=== PATIENT | male | born 1955 | race Caucasian/White ===

== ENCOUNTER 2018-06-08 13:49 | Observation (INO) ==
[2018-06-08 14:59] LABS: Basophils # (auto) 0.03 K/uL (0-0.2); Basophils % (auto) 0.3 %; Eosinophils # (auto) 0.51 K/uL (0-0.5); Eosinophils % (auto) 4.7 %; Hematocrit (blood only) 39.1 % (42-52); Hemoglobin 13.4 g/dL (14.0-18.0); Immature Granulocytes # (auto) 0.02 K/uL (0.00-0.02); Immature Granulocytes % (auto) 0.2 %; Lymphocytes # (auto) 1.72 K/uL (1.2-3.4); Lymphocytes % (auto) 15.8 %; Mean Corpuscular Hgb Conc 34.3 g/dL (32-36); Mean Corpuscular Volume 88.9 fL (80-100); Mean Platelet Volume 9.5 fL (7.4-10.4); Monocytes # (auto) 1.17 K/uL (0.11-0.59); Monocytes % (auto) 10.7 %; Neutrophils # (auto) 7.46 K/uL (1.4-6.5); Neutrophils % (auto) 68.3 %; Platelet Count 216 K/uL (130-400); RDW Coefficient of Variation 12.5 % (11.5-14.5); RDW Standard Deviation 40.2 fL (36.4-46.3); White Blood Count 10.91 K/uL (4.8-10.8)
[2018-06-08 15:15] LABS: Albumin Level 3.5 gm/dl (3.4-5.0); BUN Creatinine Ratio 11.1 (10-20); Calcium 9.1 mg/dl (8.5-10.1); Creatinine Clr Calc Pharmacy 74.4 ml/min; Est GFR (African American) 98.3; Est GFR (Non-African American) 84.9; Potassium 3.8 mmol/L (3.5-5.1)
[2018-06-08 15:18] LABS: Albumin Globulin Ratio 0.9 (0.9-2); Bilirubin,Total 0.3 mg/dl (0.2-1); Globulin 3.7 gm/dl (2.5-4.0); Total Protein 7.2 gm/dl (6.4-8.2)
[2018-06-08 15:33] LABS: Appearance Urine Clear (Clear); Bilirubin Urine Negative (Negative); Blood Urine Negative (Negative); Color Urine Yellow; Glucose Urine UA Negative (Negative); Ketones Urine Negative (Negative); Leukocyte Esterase Urine Negative (Negative); Nitrite Urine Negative (Negative); Protein Urine Negative (Negative); Specific Gravity Urine 1.021 (1.000-1.030); Urobilinogen Urine Negative (Negative)
--- NOTE | 2018-06-08 16:35 | CT Scan Report ---
CT SCAN OF THE ABDOMEN AND PELVIS WITHOUT CONTRAST CLINICAL HISTORY: Right lower quadrant abdominal pain COMPARISON STUDY: The 2011 TECHNIQUE: CT scan of the abdomen and pelvis was performed from the lung bases to the proximal femurs . Images are reviewed in the axial, sagittal, and coronal planes. IV contrast was not administered fo r this examination. A dose lowering technique was utilized adhering to the principles of ALARA. CT DOSE: 339.73 mGy.cm FINDINGS: Lower chest: There is respiratory motion artifact. There are no pleural effusions. There is no focal pulmonary consolidation. Liver: The unenhanced liver is normal in size, contour, and attenuation. There is no intrahepatic luana iary ductal dilatation. Gallbladder: Unremarkable. Spleen: Normal in size and attenuation. Pancreas: Unremarkable. Adrenal glands: There is mild nodular thickening of the left adrenal gland. This is significantly sma ller than on the prior 2011 study Kidneys: No renal, ureteral, or bladder calculi are visualized. Bowel: There are no transition zones to indicate bowel obstruction. There are a few mildly prominent small bowel loops containing air-fluid levels likely secondary to an ileus. There is no evidence of a cute sigmoid diverticulitis. There is cecal bowel wall thickening and pericecal fat infiltration. The findings are consistent with an acute inflammatory process. An abnormal appendix is not definitively identified. Portions of what appear to be a normal appendix are visualized. Diagnostic consideration s include cecal diverticulitis, atypical appearance of acute appendicitis, or infectious/inflammatory cecitis. Peritoneum: There is no free air. There is no ascites. There is a fat-containing left inguinal hernia . Vasculature: The abdominal aorta is normal in course and caliber. Adenopathy: None. Pelvic viscera: The bladder, and pelvic viscera are unremarkable. Skeletal structures: No destructive osseous lesions are seen. IMPRESSION: 1. Acute inflammatory process centered on the cecum. A definitive abnormal appendix is not visualized . Diagnostic considerations include cecal diverticulitis, atypical appearance of acute appendicitis, or infectious/inflammatory cecitis. 2. No evidence of bowel obstruction. No evidence of free air. Electronically signed by: William Keller M.D. 06/08/2018 4:34 PM
[2018-06-08] MEDS ORDERED: PIPERACILLIN/TAZOBACTAM 4.5 GM/120 ML BAG IV ONE (16:48)
[2018-06-08] MEDS ORDERED: PIPERACILL/TAZOBAC CONSULT ACTIVE PRN (16:48)
--- NOTE | 2018-06-08 17:54 | Emergency Department Note ---
Entered by Karli Tello acting as a scribe for ED Provider Note CHIEF COMPLAINT: Abdominal pain. HISTORY OF PRESENT ILLNESS: The patient is a 63 year old male who presents to the Emergency Room with complaints of right sided abdominal pain for the past 3 days. He rates his pain as a 5/10 in severity. He has also experienced the chills and diarrhea. He denies any pain radiating into his groin. He last ate last night but has been drinking water today. Pt denies LOC, headache, fevers, diaphoresis, visual changes, neck pain, chest pain, breathing difficulties, nausea, vomiting, abdominal pain, back pain, melena, hematochezia, urinary symptoms, numbness, weakness, lymphadenopathy, rash, or other complaints. REVIEW OF SYSTEMS: See HPI for pertinent positives and negatives. A total of ten systems were reviewed and were otherwise negative. PMHx/PSHx: HTN. SOCIAL HISTORY: Patient lives at home. PHYSICAL EXAM: GENERAL: Awake, alert, well-appearing, in no distress HENT: Normocephalic, atraumatic. Oropharynx unremarkable. EYES: Normal conjunctiva. Sclera non-icteric. NECK: Inspection normal. Non-tender. Supple. No nuchal rigidity. FROM. No masses. RESPIRATORY: Clear to auscultation. No wheezes. No rales. Normal respiratory effort. CARDIAC: Normal rate. Normal rhythm. No murmurs. No rubs. Extremities warm and well perfused. Pulses equal. No JVD. GI: Soft, non-distended. RLQ tenderness to palpation. Some rebound and guarding. No masses. RECTAL: Deferred. MUSCULOSKELETAL: Atraumatic. Chest examination reveals no tenderness. The back is symmetrical on inspection without obvious abnormality. There is no CVA tenderness to palpation. No joint edema. LOWER EXTREMITIES: Calves are equal size bilaterally and non-tender. No edema. No discoloration. NEURO: Normal sensorium. No sensory or motor deficits noted. SKIN: No rash or jaundice noted. EMERGENCY DEPARTMENT COURSE: 1444: The patient was evaluated in room C6, and a complete history and physical examination were performed. 1639: I discussed the patients CT scan with Dr. William Keller of Radiology. He does not feel IV contrast would be a big help to the CT findings although if he could see a normal appendix this may help surgery. 1644: I discussed the patients case with Dr. Andrew, [facility] General Surgery. He would like me to order a CT scan with IV and oral contrast. The nitesh woodruff will be further evaluated. 1655: I reevaluated the patient. He is resting comfortably. The patient will remain in the emergency department while he is getting his CT scan. I signed the patient out to Dr. Mireille Gallego at the change of shift. MEDICAL DECISION MAKING: Triage Nursing notes reviewed. The patient's presentation and history were concerning for abdominal pain. Etiologies such as appendicitis, diverticulitis, obstruction, inflammatory bowel disease, renal colic, PUD, biliary pathology, pancreatitis, mesenteric ischemia, aortic pathology, infections, genitourinary, UTI, perforated viscus, as well as others were entertained. Patient was evaluated. His examination was concerning for guarding in the right lower quadrant. The patient declined analgesia. He was monitored. His blood work shows a mild leukocytosis. Otherwise his laboratory testing is unremarkable. The patient underwent CT imaging and this does show an inflammatory process around the cecum. Radiology could not differentiate this clearly. I did consult with general surgery and the patient was evaluated by Dr. Andrew. IV and oral contrast CT imaging was ordered at the request of surgery. The patient was given a dose of IV Zosyn. He is resting comfortably. His case was signed out at the change of shift pending the CT results and surgical determination of treatment. IMPRESSION: RLQ abdominal pain. Leukocytosis. PLAN: Still patient. The scribe's documentation has been prepared under my direction and personally reviewed by me in its entirety. I confirm that the note above accurately reflects all work, treatment, procedures, and medical decision making performed by me. Impression & Plan Abdominal pain, RLQ, Leukocytosis Past Med/Surg History Medical History Hypertension Social History Feels Safe at Home: Yes Smoking Status: Former smoker Results & Data Vital Signs Vital Signs - 24 hr 06/08/18 13:54 06/08/18 16:09 06/08/18 17:44 Temperature 36.8 C Temperature Source Oral Sepsis Recent Fever Within 48 Hours No Sepsis Action Taken by Nursing No Action Required Pulse Rate 88 Pulse Rate [Right Finger] 68 69 Pulse Rhythm Regular Pulse Strength Normal Respiratory Rate 20 17 18 Respiratory Effort / Characteristics Non-Labored Spontaneous Non-Labored Spontaneous Respiratory Depth Normal Normal Respiratory Pattern Regular Regular Blood Pressure 152/76 H Blood Pressure [Right Arm] 148/70 H 160/76 H Blood Pressure Mean 101 Blood Pressure Mean [Right Arm] 96 104 Blood Pressure Position Sitting Pulse Oximetry 98 97 98 Oxygen Delivery Method Room Air Room Air Room Air Home Medications Current Medication List: was personally reviewed by me Laboratory Data Attestation: I reviewed the patient's lab results. Result diagrams: 06/08/18 14:52 06/08/18 14:52 Lab Results 06/08/18 06/08/18 06/08/18 Range/Units 14:52 14:52 15:15 WBC 10.91 H (4.8-10.8) K/uL RBC 4.40 L (4.7-6.1) M/uL Hgb 13.4 L (14.0-18.0) g/dL Hct 39.1 L (42-52) % MCV 88.9 (80-100) fL MCH 30.5 (25-34) pg MCHC 34.3 (32-36) g/dL RDW Std Deviation 40.2 (36.4-46.3) fL RDW Coeff of Heather 12.5 (11.5-14.5) % Plt Count 216 (130-400) K/uL MPV 9.5 (7.4-10.4) fL Immature Gran % (Auto) 0.2 % Neut % (Auto) 68.3 % Lymph % (Auto) 15.8 % [place] % (Auto) 10.7 % Eos % (Auto) 4.7 % Baso % (Auto) 0.3 % Immature Gran # (Auto) 0.02 (0.00-0.02) K/uL Neut # (Auto) 7.46 H (1.4-6.5) K/uL Lymph # (Auto) 1.72 (1.2-3.4) K/uL [place] # (Auto) 1.17 H (0.11-0.59) K/uL Eos # (Auto) 0.51 H (0-0.5) K/uL Baso # (Auto) 0.03 (0-0.2) K/uL Sodium 138 (136-145) mmol/L Potassium 3.8 (3.5-5.1) mmol/L Chloride 104 (98-107) mmol/L Carbon Dioxide 28 (21-32) mmol/L Anion Gap 7.0 (3-11) BUN 11 (7-18) mg/dl Creatinine 0.95 (0.6-1.4) mg/dl Est Cr Clr Drug Dosing 74.4 ml/min Est GFR ( Amer) 98.3 Est GFR (Non-Af Amer) 84.9 BUN/Creatinine Ratio 11.1 (10-20) Glucose 118 H (70-99) mg/dl Calcium 9.1 (8.5-10.1) mg/dl Total Bilirubin 0.3 (0.2-1) mg/dl AST 25 (15-37) U/L ALT 33 (12-78) U/L Alkaline Phosphatase 57 (45-117) U/L Total Protein 7.2 (6.4-8.2) gm/dl Albumin 3.5 (3.4-5.0) gm/dl Globulin 3.7 (2.5-4.0) gm/dl Albumin/Globulin Ratio 0.9 (0.9-2) Lipase 149 (73-393) U/L Urine Color Yellow Urine Appearance Clear (Clear) Urine pH 5.0 (4.5-7.5) Ur Specific [place] 1.021 (1.000-1.030) Urine Protein Negative (Negative) Urine Glucose (UA) Negative (Negative) Urine Ketones Negative (Negative) Urine Blood Negative (Negative) Urine Nitrite Negative (Negative) Urine Bilirubin Negative (Negative) Urine Urobilinogen Negative (Negative) Ur Leukocyte Esterase Negative (Negative) Administered Medications Discontinued Medications Piperacillin Sod/Tazobactam Sod (Zosyn) 4.5 gm in 120 mls @ 240 mls/hr IV NOW ONE Stop: 06/08/18 17:17 Last Admin: 06/08/18 17:35 Dose: 240 mls/hr Documented by: [id number] Imaging Data Radiologist's Impression: Radiology results as stated below per my review and the radiologist's interpretation: CT SCAN OF THE ABDOMEN AND PELVIS WITHOUT CONTRAST CLINICAL HISTORY: Right lower quadrant abdominal pain COMPARISON STUDY: The 2011 TECHNIQUE: CT scan of the abdomen and pelvis was performed from the lung bases to the proximal femurs. Images are reviewed in the axial, sagittal, and coronal planes. IV contrast was not administered for this examination. A dose lowering technique was utilized adhering to the principles of ALARA. CT DOSE: 339.73 mGy.cm FINDINGS: Lower chest: There is respiratory motion artifact. There are no pleural effusions. There is no focal pulmonary consolidation. Liver: The unenhanced liver is normal in size, contour, and attenuation. There is no intrahepatic biliary ductal dilatation. Gallbladder: Unremarkable. Spleen: Normal in size and attenuation. Pancreas: Unremarkable. Adrenal glands: There is mild nodular thickening of the left adrenal gland. This is significantly smaller than on the prior 2012 study Kidneys: No renal, ureteral, or bladder calculi are visualized. Bowel: There are no transition zones to indicate bowel obstruction. There are a few mildly prominent small bowel loops containing air-fluid levels likely secondary to an ileus. There is no evidence of acute sigmoid diverticulitis. There is cecal bowel wall thickening and pericecal fat infiltration. The findings are consistent with an acute inflammatory process. An abnormal appendix is not definitively identified. Portions of what appear to be a normal appendix are visualized. Diagnostic considerations include cecal diverticulitis, atypical appearance of acute appendicitis, or infectious/inflammatory cecitis. Peritoneum: There is no free air. There is no ascites. There is a fat-containing left inguinal hernia. Vasculature: The abdominal aorta is normal in course and caliber. Adenopathy: None. Pelvic viscera: The bladder, and pelvic viscera are unremarkable. Skeletal structures: No destructive osseous lesions are seen. IMPRESSION: 1. Acute inflammatory process centered on the cecum. A definitive abnormal appendix is not visualized. Diagnostic considerations include cecal diverticulitis, atypical appearance of acute appendicitis, or infecti ous/inflammatory cecitis. 2. No evidence of bowel obstruction. No evidence of free air. Electronically signed by: William Keller M.D. 06/08/2018 4:34 PM Blood Pressure Blood Pressure Findings: Elevated blood pressure Blood Pressure Disposition: further management by hospitalist (further management by surgeon) Discharge Plan Visit Data Chief Complaint: Abdominal Pain Stated Complaint: LOWER ABDOMINAL PAIN - RT SIDE ED Provider: Bradly Dubois Discharge Problem: Abdominal pain, RLQ, Leukocytosis Patient Disposition: Being Evaluated by Surgeon Forms Stand Alone Forms: Call Back Authorization, [employer] Soft Prescriptions Prescriptions: No Action atorvastatin 20 mg tablet 20 mg PO DAILY RF: 0 losartan 25 mg tablet 25 mg PO DAILY RF: 0 Referrals Referrals: Pedro Dean MD [Outside Practitioners] - The scribe's documentation has been prepared under my direction and personally reviewed by me in its entirety. I confirm that the note above accurately reflects all work, treatment, procedures, and medical decision making performed by me.
[2018-06-08] MEDS ORDERED: IOVERSOL 100ml IV PRN (19:37)
--- NOTE | 2018-06-08 20:00 | CT Scan Report ---
CT abd pelvis oral and IV con CLINICAL HISTORY: Further evaluation of a right lower quadrant inflammatory mass as requested by the attending surgeon. COMPARISON STUDY: Noncontrast study performed earlier in the day TECHNIQUE: The patient was scanned following administration of dilute oral contrast, and in a dynamic helical fashion during intravenous administration of 94 cc of Optiray 320 A dose lowering technique was utilized adhering to the principles of ALARA. CT DOSE: 369.07 mGy.cm FINDINGS: Lower chest: There are no pleural effusions. There is no focal pulmonary consolidation. Liver: There are no focal hepatic masses. There is no ductal dilatation. The portal vein appears ocampo nt. Gallbladder: Unremarkable. Spleen: Normal in size and attenuation. Pancreas: Unremarkable. Adrenal glands: There is mild thickening of the left adrenal gland similar to the prior study Kidneys: There is symmetric renal cortical enhancement. The kidneys are normal in size without hydron ephrosis. Bowel: There are mildly dilated proximal jejunal loops. There is no discrete transition zone. A bowel obstruction is not felt to be present, as contrast reached the rectum within 2 hours. There is a per icecal inflammatory process. There is mild submucosal fat hypertrophy within the terminal ileum. The appendix does not fill with contrast. There is mild some mucosal fat hypertrophy within the appendix. The appendix is minimally thick wall measuring 8 cm the level of the appendiceal base. There is no c onvincing evidence of periappendiceal inflammatory change. Peritoneum: There is no intraperitoneal free air or abdominal ascites. There is a fat-containing left inguinal hernia Vasculature: The abdominal aorta is normal in course and caliber. Adenopathy: None. Pelvic viscera: The bladder, and pelvic viscera are unremarkable. Skeletal structures: No destructive osseous lesions are seen. IMPRESSION: 1. Again evident is an acute inflammatory process centered on the cecum. The appendix is now clearly visualized on this study performed with intravenous and oral contrast. The appendix is mildly thicken ed measuring 8 mm. This thickening appears however to be secondary to submucosal fat hypertrophy. The re are no definite periappendiceal inflammatory changes. There is mild cecal wall thickening. There i s mild some mucosal fat hypertrophy within the cecum, and terminal ileum. The terminal and appears ot herwise normal. While acute appendicitis cannot be excluded with certainty, alternative diagnoses are strongly favored for the pericecal inflammatory process. These include cecal epiploic appendagitis, cecal diverticulitis and significantly less likely an infectious/inflammatory cecitis. Electronically signed by: William Keller M.D. 06/08/2018 7:57 PM
--- NOTE | 2018-06-08 21:57 | History & Physical Report ---
Date of Service June 08, 2018 Assessment & Plan (1) Abdominal pain, RLQ: This patient has right lower quadrant pain for 2 days. His white blood cell count is only mildly elevated. CT scan with contrast both oral and IV demonstrated that this most likely is not appendicitis. Although it is still a possibility it is more likely to be inflammation of an epiploica or a mild colitis. I do not feel that there is need for surgical intervention at this time. We discussed going home on oral antibiotics versus observation and he has chosen the latter. We will continue the IV Zosyn and n.p.o. with further evaluation via serial abdominal exams. Present on Admission?: Yes History of Present Illness Chief Complaint: Abdominal pain Primary Care Provider: Aden Rios, DO This is a 63-year-old male who presents to the emergency room with a complaint of abdominal pain in the right lower quadrant that began about 2 days ago. It began as a dull ache. It has occasional sharp component but it remains like a dull ache. He is unsure as to whether or not he had pain like this before. It is never been this severe but he may have had some mild discomfort. He is unsure when the first 1 might of been. He has no nausea or vomiting with this. His bowels are loose on frequent occasion but he does have formed stool. The loose bowels are usually related to his beer consumption. He did think that the diarrhea has been more frequent even though his beer consumption has decreased. There is been no melena or hematochezia. He denies dysuria and hematuria. Allergies Allergy/AdvReac Type Severity Reaction Status Date / Time aspirin Allergy SWELLING Unverified 06/08/18 15:12 Home Medications Home Medications Medication Instructions Recorded Confirmed Type atorvastatin 20 mg PO DAILY 06/08/18 06/08/18 History losartan 25 mg PO DAILY 06/08/18 06/08/18 History Past Med/Surg History Medical History Hypertension Social History Feels Safe at Home: Yes Smoking Status: Former smoker Review of Systems Review of Systems: All systems reviewed & are unremarkable except as noted in HPI & below Physical Exam Constitutional: well developed; no acute distress Respiratory: normal respiratory effort, lungs clear to auscultation Cardiovascular: Rate/Rhythm: regular rate and regular rhythm Gastrointestinal (Abdomen): Inspection/Auscultation: abdomen normal to inspection and normal bowel sounds; abdomen not distended Percussion/Palpation: + abdomen tender (Right lower quadrant to moderate palpation) and abdomen soft Skin: no rashes, warm and dry Lymphatic: no cervical lymphadenopathy Results & Data Vital Signs (Past 12 Hours) Vital Signs Temp Pulse Pulse Resp BP BP Pulse Ox 06/08/18 19:43 63 18 162/76 H 96 06/08/18 17:44 69 18 160/76 H 98 06/08/18 16:09 68 17 148/70 H 97 06/08/18 13:54 36.8 C 88 20 152/76 H 98 Laboratory Results 06/08/18 06/08/18 06/08/18 Range/Units 15:15 14:52 14:52 WBC 10.91 H (4.8-10.8) K/uL RBC 4.40 L (4.7-6.1) M/uL Hgb 13.4 L (14.0-18.0) g/dL Hct 39.1 L (42-52) % MCV 88.9 (80-100) fL MCH 30.5 (25-34) pg MCHC 34.3 (32-36) g/dL RDW Std Deviation 40.2 (36.4-46.3) fL RDW Coeff of Heather 12.5 (11.5-14.5) % Plt Count 216 (130-400) K/uL MPV 9.5 (7.4-10.4) fL Immature Gran % (Auto) 0.2 % Neut % (Auto) 68.3 % Lymph % (Auto) 15.8 % [place] % (Auto) 10.7 % Eos % (Auto) 4.7 % Baso % (Auto) 0.3 % Immature Gran # (Auto) 0.02 (0.00-0.02) K/uL Neut # (Auto) 7.46 H (1.4-6.5) K/uL Lymph # (Auto) 1.72 (1.2-3.4) K/uL [place] # (Auto) 1.17 H (0.11-0.59) K/uL Eos # (Auto) 0.51 H (0-0.5) K/uL Baso # (Auto) 0.03 (0-0.2) K/uL Sodium 138 (136-145) mmol/L Potassium 3.8 (3.5-5.1) mmol/L Chloride 104 (98-107) mmol/L Carbon Dioxide 28 (21-32) mmol/L Anion Gap 7.0 (3-11) BUN 11 (7-18) mg/dl Creatinine 0.95 (0.6-1.4) mg/dl Est Cr Clr Drug Dosing 74.4 ml/min Est GFR ( Amer) 98.3 Est GFR (Non-Af Amer) 84.9 BUN/Creatinine Ratio 11.1 (10-20) Glucose 118 H (70-99) mg/dl Calcium 9.1 (8.5-10.1) mg/dl Total Bilirubin 0.3 (0.2-1) mg/dl AST 25 (15-37) U/L ALT 33 (12-78) U/L Alkaline Phosphatase 57 (45-117) U/L Total Protein 7.2 (6.4-8.2) gm/dl Albumin 3.5 (3.4-5.0) gm/dl Globulin 3.7 (2.5-4.0) gm/dl Albumin/Globulin Ratio 0.9 (0.9-2) Lipase 149 (73-393) U/L Urine Color Yellow Urine Appearance Clear (Clear) Urine pH 5.0 (4.5-7.5) Ur Specific [place] 1.021 (1.000-1.030) Urine Protein Negative (Negative) Urine Glucose (UA) Negative (Negative) Urine Ketones Negative (Negative) Urine Blood Negative (Negative) Urine Nitrite Negative (Negative) Urine Bilirubin Negative (Negative) Urine Urobilinogen Negative (Negative) Ur Leukocyte Esterase Negative (Negative) Diagnostic Findings CT abd pelvis oral and IV con CLINICAL HISTORY: Further evaluation of a right lower quadrant inflammatory mass as requested by the attending surgeon. COMPARISON STUDY: Noncontrast study performed earlier in the day TECHNIQUE: The patient was scanned following administration of dilute oral contrast, and in a dynamic helical fashion during intravenous administration of 94 cc of Optiray 320 A dose lowering technique was utilized adhering to the principles of ALARA. CT DOSE: 369.07 mGy.cm FINDINGS: Lower chest: There are no pleural effusions. There is no focal pulmonary consolidation. Liver: There are no focal hepatic masses. There is no ductal dilatation. The portal vein appears patent. Gallbladder: Unremarkable. Spleen: Normal in size and attenuation. Pancreas: Unremarkable. Adrenal glands: There is mild thickening of the left adrenal gland similar to the prior study Kidneys: There is symmetric renal cortical enhancement. The kidneys are normal in size without hydronephrosis. Bowel: There are mildly dilated proximal jejunal loops. There is no discrete transition zone. A bowel obstruction is not felt to be present, as contrast reached the rectum within 2 hours. There is a pericecal inflammatory process. There is mild submucosal fat hypertrophy within the terminal ileum. The appendix does not fill with contrast. There is mild some mucosal fat hypertrophy within the appendix. The appendix is minimally thick wall measuring 8 cm the level of the appendiceal base. There is no convincing evidence of periappendiceal inflammatory change. Peritoneum: There is no intraperitoneal free air or abdominal ascites. There is a fat-containing left inguinal hernia Vasculature: The abdominal aorta is normal in course and caliber. Adenopathy: None. Pelvic viscera: The bladder, and pelvic viscera are unremarkable. Skeletal structures: No destructive osseous lesions are seen. IMPRESSION: 1. Again evident is an acute inflammatory process centered on the cecum. The appendix is now clearly visualized on this study performed with intravenous and oral contrast. The appendix is mildly thickened measuring 8 mm. This thickening appears however to be secondary to submucosal fat hypertrophy. There are no definite periappendiceal inflammatory changes. There is mild cecal wall thickening. There is mild some mucosal fat hypertrophy within the cecum, and terminal ileum. The terminal and appears otherwise normal. While acute appe ndicitis cannot be excluded with certainty, alternative diagnoses are strongly favored for the pericecal inflammatory process. These include cecal epiploic appendagitis, cecal diverticulitis and significantly less likely an infectious/inflammatory cecitis.
[2018-06-08] MEDS: NSS + 20MEQ KCL 20 MEQ/1,000 ML BAG IV SCH (23:47)
[2018-06-08] MEDS: PIPERACILLIN/TAZOBACTAM 3.375 GM in DEXTROSE 5% 100 ML IV SCH (23:48)
--- NOTE | 2018-06-09 00:17 | Emergency Department Note ---
ED Visit Note I received this patient in signout at the change of shift from Dr. Dubois pending CT scan of the abdomen pelvis with IV and oral contrast. The CT scan was performed and is read as below: CT abd pelvis oral and IV con CLINICAL HISTORY: Further evaluation of a right lower quadrant inflammatory mass as requested by the attending surgeon. COMPARISON STUDY: Noncontrast study performed earlier in the day TECHNIQUE: The patient was scanned following administration of dilute oral contrast, and in a dynamic helical fashion during intravenous administration of 94 cc of Optiray 320 A dose lowering technique was utilized adhering to the principles of ALARA. CT DOSE: 369.07 mGy.cm FINDINGS: Lower chest: There are no pleural effusions. There is no focal pulmonary consolidation. Liver: There are no focal hepatic masses. There is no ductal dilatation. The portal vein appears patent. Gallbladder: Unremarkable. Spleen: Normal in size and attenuation. Pancreas: Unremarkable. Adrenal glands: There is mild thickening of the left adrenal gland similar to the prior study Kidneys: There is symmetric renal cortical enhancement. The kidneys are normal in size without hydronephrosis. Bowel: There are mildly dilated proximal jejunal loops. There is no discrete transition zone. A bowel obstruction is not felt to be present, as contrast reached the rectum within 2 hours. There is a pericecal inflammatory process. There is mild submucosal fat hypertrophy within the terminal ileum. The appendix does not fill with contrast. There is mild some mucosal fat hypertrophy within the appendix. The appendix is minimally thick wall measuring 8 cm the level of the appendiceal base. There is no convincing evidence of periappendiceal infl ammatory change. Peritoneum: There is no intraperitoneal free air or abdominal ascites. There is a fat-containing left inguinal hernia Vasculature: The abdominal aorta is normal in course and caliber. Adenopathy: None. Pelvic viscera: The bladder, and pelvic viscera are unremarkable. Skeletal structures: No destructive osseous lesions are seen. IMPRESSION: 1. Again evident is an acute inflammatory process centered on the cecum. The appendix is now clearly visualized on this study performed with intravenous and oral contrast. The appendix is mildly thickened measuring 8 mm. This thickening appears however to be secondary to submucosal fat hypertrophy. There are no definite periappendiceal inflammatory changes. There is mild cecal wall thickening. There is mild some mucosal fat hypertrophy within the cecum, and terminal ileum. The terminal and appears otherwise normal. While acute appendicitis cannot be excluded with certainty, alternative diagnoses are strongly favored for the pericecal inflammatory process. These include cecal epiploic appendagitis, cecal diverticulitis and significantly less likely an infectious/inflammatory cecitis. Electronically signed by: William Keller M.D. 06/08/2018 7:57 PM Dictated: 06/08/181939 Transcribed: 06/08/181939 The case was discussed with Dr. Andrew who reviewed the images. He felt the patient should be admitted for IV antibiotics and observation. I did inform the patient of the findings. Dr. Andrew arrived at the bedside. The patient and are reassured and are happy with the plan for observation. The patient did receive antibiotics per Dr. Dubois earlier in the evening. Further antibiotic management will be left to Dr. Andrew on inpt service. Please see previous documentation for further details of the history, physical and visit. .
[2018-06-09] MEDS: PIPERACILLIN/TAZOBACTAM 3.375 GM in DEXTROSE 5% 100 ML IV SCH (07:30)
[2018-06-09] MEDS: NSS + 20MEQ KCL 20 MEQ/1,000 ML BAG IV SCH (07:33)
[2018-06-09 07:48] LABS: Basophils # (auto) 0.02 K/uL (0-0.2); Basophils % (auto) 0.3 %; Eosinophils # (auto) 0.66 K/uL (0-0.5); Eosinophils % (auto) 9.9 %; Hemoglobin 13.4 g/dL (14.0-18.0); Immature Granulocytes # (auto) 0.01 K/uL (0.00-0.02); Immature Granulocytes % (auto) 0.2 %; Lymphocytes % (auto) 22.5 %; Mean Corpuscular Volume 88.6 fL (80-100); Mean Platelet Volume 9.3 fL (7.4-10.4); Monocytes # (auto) 0.78 K/uL (0.11-0.59); Monocytes % (auto) 11.7 %; Neutrophils # (auto) 3.69 K/uL (1.4-6.5); Neutrophils % (auto) 55.4 %; Platelet Count 217 K/uL (130-400); RDW Coefficient of Variation 12.5 % (11.5-14.5); RDW Standard Deviation 40.2 fL (36.4-46.3); White Blood Count 6.66 K/uL (4.8-10.8)
[2018-06-09 07:52] LABS: Mean Corpuscular Hgb Conc 34.4 g/dL (32-36)
[2018-06-09] MEDS ORDERED: LOSARTAN POTASSIUM 25 MG TAB PO SCH (09:00)
--- NOTE | 2018-06-09 11:34 | Surgery Progress Note ---
Date of Service June 09, 2018 Subjective Feels much better today Has minimal pain Has no nausea or vomiting Physical Exam Gastrointestinal (Abdomen): Inspection/Auscultation: abdomen normal to inspection and normal bowel sounds; abdomen not distended Percussion/Palpation: + abdomen tender (Very minimal tenderness to deep palpation in the right lower quadrant) and abdomen soft Results & Data Vital Signs (Past 12 Hours) Vital Signs Temp Pulse Resp BP Pulse Ox 06/09/18 07:15 37.0 C 61 18 173/77 H 95 Laboratory Results 06/09/18 06/08/18 06/08/18 Range/Units 07:30 15:15 14:52 WBC 6.66 (4.8-10.8) K/uL RBC 4.40 L (4.7-6.1) M/uL Hgb 13.4 L (14.0-18.0) g/dL Hct 39.0 L (42-52) % MCV 88.6 (80-100) fL MCH 30.5 (25-34) pg MCHC 34.4 (32-36) g/dL RDW Std Deviation 40.2 (36.4-46.3) fL RDW Coeff of [place] 12.5 (11.5-14.5) % Plt Count 217 (130-400) K/uL MPV 9.3 (7.4-10.4) fL Immature Gran % (Auto) 0.2 % Neut % (Auto) 55.4 % Lymph % (Auto) 22.5 % [place] % (Auto) 11.7 % Eos % (Auto) 9.9 % Baso % (Auto) 0.3 % Immature Gran # (Auto) 0.01 (0.00-0.02) K/uL Neut # (Auto) 3.69 (1.4-6.5) K/uL Lymph # (Auto) 1.50 (1.2-3.4) K/uL [place] # (Auto) 0.78 H (0.11-0.59) K/uL Eos # (Auto) 0.66 H (0-0.5) K/uL Baso # (Auto) 0.02 (0-0.2) K/uL Sodium 138 (136-145) mmol/L Potassium 3.8 (3.5-5.1) mmol/L Chloride 104 (98-107) mmol/L Carbon Dioxide 28 (21-32) mmol/L Anion Gap 7.0 (3-11) BUN 11 (7-18) mg/dl Creatinine 0.95 (0.6-1.4) mg/dl Est Cr Clr Drug Dosing 74.4 ml/min Est GFR ( Amer) 98.3 Est GFR (Non-Af Amer) 84.9 BUN/Creatinine Ratio 11.1 (10-20) Glucose 118 H (70-99) mg/dl Calcium 9.1 (8.5-10.1) mg/dl Total Bilirubin 0.3 (0.2-1) mg/dl AST 25 (15-37) U/L ALT 33 (12-78) U/L Alkaline Phosphatase 57 (45-117) U/L Total Protein 7.2 (6.4-8.2) gm/dl Albumin 3.5 (3.4-5.0) gm/dl Globulin 3.7 (2.5-4.0) gm/dl Albumin/Globulin Ratio 0.9 (0.9-2) Lipase 149 (73-393) U/L Urine Color Yellow Urine Appearance Clear (Clear) Urine pH 5.0 (4.5-7.5) Ur Specific [place] 1.021 (1.000-1.030) Urine Protein Negative (Negative) Urine Glucose (UA) Negative (Negative) Urine Ketones Negative (Negative) Urine Blood Negative (Negative) Urine Nitrite Negative (Negative) Urine Bilirubin Negative (Negative) Urine Urobilinogen Negative (Negative) Ur Leukocyte Esterase Negative (Negative) 06/08/18 Range/Units 14:52 WBC 10.91 H (4.8-10.8) K/uL RBC 4.40 L (4.7-6.1) M/uL Hgb 13.4 L (14.0-18.0) g/dL Hct 39.1 L (42-52) % MCV 88.9 (80-100) fL MCH 30.5 (25-34) pg MCHC 34.3 (32-36) g/dL RDW Std Deviation 40.2 (36.4-46.3) fL RDW Coeff of [place] 12.5 (11.5-14.5) % Plt Count 216 (130-400) K/uL MPV 9.5 (7.4-10.4) fL Immature Gran % (Auto) 0.2 % Neut % (Auto) 68.3 % Lymph % (Auto) 15.8 % [place] % (Auto) 10.7 % Eos % (Auto) 4.7 % Baso % (Auto) 0.3 % Immature Gran # (Auto) 0.02 (0.00-0.02) K/uL Neut # (Auto) 7.46 H (1.4-6.5) K/uL Lymph # (Auto) 1.72 (1.2-3.4) K/uL [place] # (Auto) 1.17 H (0.11-0.59) K/uL Eos # (Auto) 0.51 H (0-0.5) K/uL Baso # (Auto) 0.03 (0-0.2) K/uL Sodium (136-145) mmol/L Potassium (3.5-5.1) mmol/L Chloride (98-107) mmol/L Carbon Dioxide (21-32) mmol/L Anion Gap (3-11) BUN (7-18) mg/dl Creatinine (0.6-1.4) mg/dl Est Cr Clr Drug Dosing ml/min Est GFR ( Amer) Est GFR (Non-Af Amer) BUN/Creatinine Ratio (10-20) Glucose (70-99) mg/dl Calcium (8.5-10.1) mg/dl Total Bilirubin (0.2-1) mg/dl AST (15-37) U/L ALT (12-78) U/L Alkaline Phosphatase (45-117) U/L Total Protein (6.4-8.2) gm/dl Albumin (3.4-5.0) gm/dl Globulin (2.5-4.0) gm/dl Albumin/Globulin Ratio (0.9-2) Lipase (73-393) U/L Urine Color Urine Appearance (Clear) Urine pH (4.5-7.5) Ur Specific [place] (1.000-1.030) Urine Protein (Negative) Urine Glucose (UA) (Negative) Urine Ketones (Negative) Urine Blood (Negative) Urine Nitrite (Negative) Urine Bilirubin (Negative) Urine Urobilinogen (Negative) Ur Leukocyte Esterase (Negative)
--- NOTE | 2018-06-09 11:36 | Surgery Progress Note ---
Date of Service June 09, 2018 Assessment & Plan (1) Abdominal pain, RLQ: Patient's right lower quadrant pain has almost completely resolved Doubt appendicitis Can discharge to home after eating We discharged on Cipro and Flagyl for 1 week Can follow-up with his primary care physician Present on Admission?: Yes Subjective Feels much better today Is minimal abdominal pain Denies nausea vomiting Physical Exam Gastrointestinal (Abdomen): Inspection/Auscultation: normal bowel sounds; abdomen not distended Percussion/Palpation: + abdomen tender (Minimal tenderness to deep palpation in the right lower quadrant) and abdomen soft; no abdominal mass Results & Data Vital Signs (Past 12 Hours) Vital Signs Temp Pulse Resp BP Pulse Ox 06/09/18 07:15 37.0 C 61 18 173/77 H 95 Laboratory Results 06/09/18 06/08/18 06/08/18 Range/Units 07:30 15:15 14:52 WBC 6.66 (4.8-10.8) K/uL RBC 4.40 L (4.7-6.1) M/uL Hgb 13.4 L (14.0-18.0) g/dL Hct 39.0 L (42-52) % MCV 88.6 (80-100) fL MCH 30.5 (25-34) pg MCHC 34.4 (32-36) g/dL RDW Std Deviation 40.2 (36.4-46.3) fL RDW Coeff of [place] 12.5 (11.5-14.5) % Plt Count 217 (130-400) K/uL MPV 9.3 (7.4-10.4) fL Immature Gran % (Auto) 0.2 % Neut % (Auto) 55.4 % Lymph % (Auto) 22.5 % [place] % (Auto) 11.7 % Eos % (Auto) 9.9 % Baso % (Auto) 0.3 % Immature Gran # (Auto) 0.01 (0.00-0.02) K/uL Neut # (Auto) 3.69 (1.4-6.5) K/uL Lymph # (Auto) 1.50 (1.2-3.4) K/uL [place] # (Auto) 0.78 H (0.11-0.59) K/uL Eos # (Auto) 0.66 H (0-0.5) K/uL Baso # (Auto) 0.02 (0-0.2) K/uL Sodium 138 (136-145) mmol/L Potassium 3.8 (3.5-5.1) mmol/L Chloride 104 (98-107) mmol/L Carbon Dioxide 28 (21-32) mmol/L Anion Gap 7.0 (3-11) BUN 11 (7-18) mg/dl Creatinine 0.95 (0.6-1.4) mg/dl Est Cr Clr Drug Dosing 74.4 ml/min Est GFR ( Amer) 98.3 Est GFR (Non-Af Amer) 84.9 BUN/Creatinine Ratio 11.1 (10-20) Glucose 118 H (70-99) mg/dl Calcium 9.1 (8.5-10.1) mg/dl Total Bilirubin 0.3 (0.2-1) mg/dl AST 25 (15-37) U/L ALT 33 (12-78) U/L Alkaline Phosphatase 57 (45-117) U/L Total Protein 7.2 (6.4-8.2) gm/dl Albumin 3.5 (3.4-5.0) gm/dl Globulin 3.7 (2.5-4.0) gm/dl Albumin/Globulin Ratio 0.9 (0.9-2) Lipase 149 (73-393) U/L Urine Color Yellow Urine Appearance Clear (Clear) Urine pH 5.0 (4.5-7.5) Ur Specific [place] 1.021 (1.000-1.030) Urine Protein Negative (Negative) Urine Glucose (UA) Negative (Negative) Urine Ketones Negative (Negative) Urine Blood Negative (Negative) Urine Nitrite Negative (Negative) Urine Bilirubin Negative (Negative) Urine Urobilinogen Negative (Negative) Ur Leukocyte Esterase Negative (Negative) 06/08/18 Range/Units 14:52 WBC 10.91 H (4.8-10.8) K/uL RBC 4.40 L (4.7-6.1) M/uL Hgb 13.4 L (14.0-18.0) g/dL Hct 39.1 L (42-52) % MCV 88.9 (80-100) fL MCH 30.5 (25-34) pg MCHC 34.3 (32-36) g/dL RDW Std Deviation 40.2 (36.4-46.3) fL RDW Coeff of [place] 12.5 (11.5-14.5) % Plt Count 216 (130-400) K/uL MPV 9.5 (7.4-10.4) fL Immature Gran % (Auto) 0.2 % Neut % (Auto) 68.3 % Lymph % (Auto) 15.8 % [place] % (Auto) 10.7 % Eos % (Auto) 4.7 % Baso % (Auto) 0.3 % Immature Gran # (Auto) 0.02 (0.00-0.02) K/uL Neut # (Auto) 7.46 H (1.4-6.5) K/uL Lymph # (Auto) 1.72 (1.2-3.4) K/uL [place] # (Auto) 1.17 H (0.11-0.59) K/uL Eos # (Auto) 0.51 H (0-0.5) K/uL Baso # (Auto) 0.03 (0-0.2) K/uL Sodium (136-145) mmol/L Potassium (3.5-5.1) mmol/L Chloride (98-107) mmol/L Carbon Dioxide (21-32) mmol/L Anion Gap (3-11) BUN (7-18) mg/dl Creatinine (0.6-1.4) mg/dl Est Cr Clr Drug Dosing ml/min Est GFR ( Amer) Est GFR (Non-Af Amer) BUN/Creatinine Ratio (10-20) Glucose (70-99) mg/dl Calcium (8.5-10.1) mg/dl Total Bilirubin (0.2-1) mg/dl AST (15-37) U/L ALT (12-78) U/L Alkaline Phosphatase (45-117) U/L Total Protein (6.4-8.2) gm/dl Albumin (3.4-5.0) gm/dl Globulin (2.5-4.0) gm/dl Albumin/Globulin Ratio (0.9-2) Lipase (73-393) U/L Urine Color Urine Appearance (Clear) Urine pH (4.5-7.5) Ur Specific [place] (1.000-1.030) Urine Protein (Negative) Urine Glucose (UA) (Negative) Urine Ketones (Negative) Urine Blood (Negative) Urine Nitrite (Negative) Urine Bilirubin (Negative) Urine Urobilinogen (Negative) Ur Leukocyte Esterase (Negative)
--- NOTE | 2018-06-10 09:30 | Discharge Summary ---
Date of Service June 10, 2018 Admission HPI Per Admitting Provider This is a 63-year-old male who presents to the emergency room with a complaint of abdominal pain in the right lower quadrant that began about 2 days ago. It began as a dull ache. It has occasional sharp component but it remains like a dull ache. He is unsure as to whether or not he had pain like this before. It is never been this severe but he may have had some mild discomfort. He is unsure when the first 1 might of been. He has no nausea or vomiting with this. His bowels are loose on frequent occasion but he does have formed stool. The loose bowels are usually related to his beer consumption. He did think that the diarrhea has been more frequent even though his beer consumption has decreased. There is been no melena or hematochezia. He denies dysuria and hematuria. Principal Diagnosis right lower quadrant inflammatory process, not appendicits Discharge Exam Constitutional well developed; no acute distress Respiratory normal respiratory effort, lungs clear to auscultation Cardiovascular Rate/Rhythm: regular rate and regular rhythm Gastrointestinal (Abdomen) Inspection/Auscultation: abdomen normal to inspection and normal bowel sounds; abdomen not distended Percussion/Palpation: + abdomen tender (Minimal tenderness to deep palpation in the right lower quadrant) and abdomen soft; no abdominal mass Skin no rashes, warm and dry Lymphatic no cervical lymphadenopathy Discharge Data Allergies Allergy/AdvReac Type Severity Reaction Status Date / Time aspirin Allergy SWELLING Unverified 06/08/18 15:12 Consultations 06/08/18 20:20 ED Decision to Admit Stat Ordered Studies 06/08/18 14:38 CT abd pelvis wo con Stat 06/08/18 17:02 CT abd pelvis oral and IV con Stat CT abd pelvis oral and IV con CLINICAL HISTORY: Further evaluation of a right lower quadrant inflammatory mass as requested by the attending surgeon. COMPARISON STUDY: Noncontrast study performed earlier in the day TECHNIQUE: The patient was scanned following administration of dilute oral contrast, and in a dynamic helical fashion during intravenous administration of 94 cc of Optiray 320 A dose lowering technique was utilized adhering to the principles of ALARA. CT DOSE: 369.07 mGy.cm FINDINGS: Lower chest: There are no pleural effusions. There is no focal pulmonary consolidation. Liver: There are no focal hepatic masses. There is no ductal dilatation. The portal vein appears patent. Gallbladder: Unremarkable. Spleen: Normal in size and attenuation. Pancreas: Unremarkable. Adrenal glands: There is mild thickening of the left adrenal gland similar to the prior study Kidneys: There is symmetric renal cortical enhancement. The kidneys are normal in size without hydronephrosis. Bowel: There are mildly dilated proximal jejunal loops. There is no discrete transition zone. A bowel obstruction is not felt to be present, as contrast reached the rectum within 2 hours. There is a pericecal inflammatory process. There is mild submucosal fat hypertrophy within the terminal ileum. The appendix does not fill with contrast. There is mild some mucosal fat hypertrophy within the appendix. The appendix is minimally thick wall measuring 8 cm the level of the appendiceal base. There is no convincing evidence of periappendiceal inflammatory change. Peritoneum: There is no intraperitoneal free air or abdominal ascites. There is a fat-containing left inguinal hernia Vasculature: The abdominal aorta is normal in course and caliber. Adenopathy: None. Pelvic viscera: The bladder, and pelvic viscera are unremarkable. Skeletal structures: No destructive osseous lesions are seen. IMPRESSION: 1. Again evident is an acute inflammatory process centered on the cecum. The appendix is now clearly visualized on this study performed with intravenous and oral contrast. The appendix is mildly thickened measuring 8 mm. This thickening appears however to be secondary to submucosal fat hypertrophy. There are no definite periappendiceal inflammatory changes. There is mild cecal wall thickening. There is mild some mucosal fat hypertrophy within the cecum, and terminal ileum. The terminal and appears otherwise normal. While acute appendicitis cannot be excluded with certainty, alternative diagnoses are strongly favored for the pericecal inflammatory process. These include cecal epiploic appendagitis, cecal diverticulitis and significantly less likely an infectious/inflammatory cecitis. Hospital Course (1) Abdominal pain, RLQ: The patient was placed on IV Zosyn for 24 hours. The pain had almost completely resolved by the next day. He was given a regular diet that he tolerated. This was felt to either be inflammation of an epiploic of the cecum or mild C colitis but I favor the former. His exam was benign. There is no evidence of peritonitis. Total Time Total Time Spent Total Time Spent (In Minutes): 10 minutes Discharge Plan Discharge Items Patient Disposition: Home - Self-Care Reason For Visit: ABD PAIN Discharge Diagnosis: Same Discharge Goals: Decrease discomfort Activity: Resume your previous activity Non-emergency contact: Primary Care Provider Call non-emergency contact if: your symptoms worsen Follow-up/Referrals: Aden Rios DO [Primary Care Provider] - Diet: Low Fiber Addtl Provider Instructions: Return to ER if symptoms return Prescriptions: New ciprofloxacin HCl [Cipro] 500 mg tablet 500 mg PO BID Qty: 14 RF: 0 metronidazole 500 mg tablet 500 mg PO TID Qty: 21 RF: 0 Continued atorvastatin 20 mg tablet 20 mg PO DAILY RF: 0 losartan 25 mg tablet 25 mg PO DAILY RF: 0 Stand-Alone Forms: Call Back Authorization, [facility] Discharge Orders: Discharge Order (Routine); Ordered 06/09/18 Ordered By: Julio Andrew Admission Data Admit Date/Time: 06/08/18 22:03 Attending Provider: Julio Andrew Admit Provider: Julio Andrew Primary Care Provider: Aden Rios Other Providers: Julio Andrew Service: Surgical Services Other Interventions: Discharge Summary Assessment (RN) Last Done: 06/09/18 13:04 DC Date/Time DO NOT enter until pt leaves facility: 06/09/18 13:25
== END 2018-06-09 13:25 | disposition home or self-care (01) ==
LOC: ED 13:49 → 3W 13:49